=== PATIENT | female | born 1990 | race Caucasian/White ===

== ENCOUNTER 2018-03-20 15:28 | Inpatient (IN) | payer MEDICAID, OTHER, SELFPAY ==
[2018-03-20] MEDS ORDERED: METHYLERGONOVINE 0.2MG/ML AMP IM PRN (15:54)
[2018-03-20] MEDS ORDERED: CARBOPROST TROME 250 MCG/ML IM PRN (15:54)
[2018-03-20] MEDS ORDERED: Ringers Lactate 1,000 ML IV PRN (15:54)
[2018-03-20] MEDS ORDERED: Ringers Lactate 1,000 ML IV SCH (16:00)
[2018-03-20] MEDS ORDERED: PENICILLIN 5 MU in NA CHLORIDE 0.9% 100 ML IV ONE (16:02)
[2018-03-20] MEDS ORDERED: NA CIT/CITRIC AC 30 ML ORAL UDC PO ONE (16:05)
[2018-03-20] MEDS ORDERED: MORPHINE SULFATE/PF 1 MG/ML (10 ML AMP) ONE (16:19)
[2018-03-20] MEDS ORDERED: NS 0.9% VIAL 20 ML ONE (16:20)
[2018-03-20] MEDS ORDERED: Phenylephrine HCl 10 MG/ML 1 ML VIAL ONE (16:20)
[2018-03-20] MEDS ORDERED: FENTANYL CITR 250 MCG/5 ML ONE (16:20)
[2018-03-20] MEDS ORDERED: OXYTOCIN 10 UNIT/ML ML IV ONE ×2 (16:20→22:04)
[2018-03-20] MEDS ORDERED: EPHEDRINE SULF 50 MG/ML SYR ONE (16:20)
[2018-03-20 16:31] LABS: RPR Titer ND
[2018-03-20 16:38] LABS: Absolute Lymphocytes (CBC) 1.2 K/uL (0.7-4.9); Absolute Monocytes 1.1 K/uL (0.1-1.3); Absolute Neutrophil 9.9 K/uL (1.8-8.0); Basophils % 0.1 % (0-1.3); Eosinophils % 0.6 % (0-4.4); Hematocrit 33.2 % (36.0-45.0); Lymphocytes % 9.5 % (15.3-44.8); MCH 32.5 pg (27.0-35.0); MPV 8.8 fL (7.6-11.3); Monocytes % 8.7 % (3.3-12.3); RBC Red Blood Cell Count 3.57 M/uL (3.86-4.86)
[2018-03-20 16:41] LABS: Protime INR 0.97
[2018-03-20] MEDS ORDERED: PENICILLIN G POT 5 MU/100 ML IVPB IV ONE (17:00)
[2018-03-20] MEDS ORDERED: METOCLOPRAMIDE 10 MG/2mL INJ IV SCH (17:00)
--- NOTE | 2018-03-20 17:12 | RAD REPORT ---
EXAM DESCRIPTION: US - OB Limited - 03/20/2018 5:01 pm CLINICAL HISTORY: ^R/O Placenta Accreta COMPARISON: None. FINDINGS: Anterior placenta is grade 1. No abruption or marginal hematoma. No suspicion for accreta. IMPRESSION: No evidence of placenta accreta.
[2018-03-20] MEDS ORDERED: MIDAZOLAM HCL 2 MG/2 ML INJ ONE (17:15)
[2018-03-20] MEDS ORDERED: KETAMINE HCL 1,000 MG/10 ML VIAL ONE (17:15)
[2018-03-20] MEDS ORDERED: PROMETHAZINE 25 MG/ML VIAL ONE (19:22)
[2018-03-20] MEDS ORDERED: Oxycodone HCl/Acetaminophen 1 TAB TAB PO PRN (20:32)
[2018-03-20] MEDS ORDERED: DOCUSATE NA/SENNA CONC 1 TAB PO PRN (20:32)
[2018-03-20] MEDS ORDERED: ONDANSETRON 4 MG/2 ML VIAL IV PRN (20:32)
[2018-03-20] MEDS ORDERED: ACETAMINOPHEN 500 MG TAB PO PRN (20:32)
[2018-03-20] MEDS ORDERED: KETOROLAC 30 MG/ML INJ IV PRN (20:36)
[2018-03-20] MEDS ORDERED: PROMETHAZINE 25 MG/ML VIAL IV PRN (20:38)
[2018-03-20] MEDS ORDERED: D5LR 1,000 ML IV SCH (21:00)
[2018-03-20] MEDS ORDERED: OXYTOCIN/LR 20 UNIT/1,000 ML BAG IV SCH (21:00)
[2018-03-20 21:12] VITALS: BMI 34.4
[2018-03-20] MEDS: DIPHENHYDRAMINE 50 MG/ML VIAL IV PRN (22:10)
--- NOTE | 2018-03-20 22:25 | PREOPHP ---
Date of Admission: 03/20/2018 History Of Present Illness: A 28-year-old 5, para 2, AB 2, now with a third section . The patient is somewhere between 33 weeks and 6 days and 36 weeks. She has had progesterone durin g the . She has had betamethasone, experienced spontaneous rupture of membranes within the last 2 hours, is 2-3 cm, not in active labor at this point with definite rupture of membranes. Discu ssion with the patient and family about either transferring the patient to a high-risk center or deli vering here. She knows that the betamethasone does not guarantee that the baby's lungs will function adequately and the baby may have to be transferred after it is born. She says she does not want to transfer unless at all necessary. We will get a stat ultrasound to make sure she does not have place nta accreta and if she does not, we will proceed on with section. I have ordered 5 million units of penicillin as she was less than 37 weeks and we are instituting strep prophylaxis. Family History: Noncontributory. Social History: She has been on vitamins, does not smoke. Physical Examination: Vital Signs: All stable. HEENT: Clear. Pupils equal, round, and reactive to light and accommodation. Conjunctivae well perf used. No oral, lingual, or buccal lesions. Chest and Lungs: Clear. Heart: Without murmurs, thrills, heaves, or rubs. Breasts: Without masses. Abdomen: At least 35 cm size. Extremities: Clear. Pelvic: As stated. We will proceed with repeat section if the ultrasound demonstrates no placental problems. LEWIS/MOHINDER Voice ID: [id number]
[2018-03-20 22:54] LABS: RPR (Rapid Plasma Reagin) NON-REACT (NON-REACT)
[2018-03-21] MEDS ORDERED: CEFAZOLIN/SWI 2gm 2 GM/20 ML SYR ONE (01:34)
[2018-03-21] MEDS: DIPHENHYDRAMINE 50 MG/ML VIAL IV PRN (02:00)
[2018-03-21] MEDS ORDERED: CEFAZOLIN 2 GM in NA CHLORIDE 0.9% 100 ML IVPB ONE (02:00)
--- NOTE | 2018-03-21 04:32 | OP ---
Surgeon: Bakari Thornton MD A 28-year-old 5, para 2, AB2, best estimates 33 weeks 6 days to 36 weeks, with history of pre mature labor, was given progesterone during her and received betamethasone. Experienced sp ontaneous rupture of membranes, prior to admission was noted to be 2.5 to 3 cm. Gross rupture of flu id. No signs of amnionitis. Best estimated baby weight 5 pounds or better. After discussion with p nima and family, it was decided proceed with section. Ultrasound was done to make sure th ere was no problem with the placenta such as accreta, none was seen. The patient was taken to [facility]. After spinal block anesthesia had been performed, time-out was then performed. The patient been given 5 million units of penicillin as she was less than 37 weeks with ruptured membranes. A Pfannen stiel incision was created. The incision was carried to the fascia. The fascia was incised and inci yaakov carried transversely bilaterally. Anterior fascial plane was developed with both blunt and tasha p dissection. The underlying rectus muscle was easily and peritoneal defect was seen and e ntered. A low transverse uterine incision was created after the bladder flap was developed and pushe d away. A 5 pounds 5 ounces male infant was delivered without difficulties. Apgars [address] Regina helton in pediatric attendance. Cord blood specimen was obtained. The placenta was removed manually . Uterus cleared of clot and blood. Cervical os was dilated. Uterus was closed with a running-lock ed stitch of 1 chromic followed by 2 inminn-nb-neipf stitches in the right angle for complete hemosta sis. Estimated blood loss 850 cc. Gutters were cleared of clot and blood. Uterus was replaced in t he peritoneal cavity. Re-inspection of suture line showed no further bleeding. The fascia was close d with 1 Vicryl running from either angle to the midline. Subcutaneous tissue was closed with 2-0 pl ain. Absorbable luis placed and then metal luis. The patient tolerated all procedures well an d was transferred back to her room in good condition. Final Diagnoses: Intrauterine gestation, best estimates 35 weeks, repeat section, ruptured membranes, history of betamethasone administration, and penicillin prophylaxis. LEWIS/MOHINDER Voice ID: [id number] Report ID: [id number]
[2018-03-21] MEDS: Oxycodone HCl/Acetaminophen 1 TAB TAB PO PRN ×2 (07:55→13:52)
[2018-03-21] MEDS ORDERED: FAMOTIDINE 20 MG/2 ML VIAL IV SCH (09:00)
[2018-03-21 12:37] VITALS: BP 140/70; TEMP 98.3
[2018-03-21] MEDS ORDERED: IBUPROFEN 400 MG TAB PO SCH (16:00)
--- NOTE | 2018-03-22 06:07 | DS ---
Date of Discharge: 03/21/2018 A 28-year-old 5, para 2, previous , previous premature delivery, who has been given betamethasone during the and progesterone injections. Estimated 35 weeks gestation when sh e ruptured membranes. Had repeat section delivery of 5 pounds 5 ounce male , Apgars 8 and 9. Spinal block anesthesia. 850 cc blood loss. Penicillin given for prophylaxis as she was le ss than 37 weeks. Postoperatively afebrile, ambulating and voiding. Lochia is normal. Will discontinue her IV and Fol ey. She wants to go home later this afternoon. I see no problem with that doing exceptionally well. Final Diagnoses: Intrauterine gestation, 35 weeks. Premature rupture of membranes. Repeat section. Penicillin for prophylaxis. Dismissed. LEWIS/MOHINDER Voice ID: [id number] Report ID: [id number]
[2018-03-23 12:35] LABS: HBsAG Nonreactive (Nonreactive)
== END 2018-03-21 15:00 | disposition home or self-care (01) | DRG 765 ==
LOC: 2ND-WC 15:28
PROVIDERS: ADMIT Specialist; ATTEND Specialist
PROC: 10D00Z1 Extraction of Products of Conception, Low, Open Approach (ICD-10-PCS; principal; 2018-03-20 17:00)
DX: O34.211 Maternal care for low transverse scar from previous cesarean delivery (principal); O60.14X0 Preterm labor third trimester with preterm delivery third trimester, not applicable or unspecified; O42.013 Preterm premature rupture of membranes, onset of labor within 24 hours of rupture, third trimester; Z3A.35 35 weeks gestation of pregnancy; Z37.0 Single live birth
CPT/HCPCS: 36415; 76815; 85014; 85025; 85610; 85730; 86592; 86850; 86900; 86901; 87340; 88305; 88307; J0690; J2250; J2370; J2405; J2550; J2590; J2765; J3490

== ENCOUNTER 2021-05-15 17:48 | Emergency (ER) | payer BC, OTHER ==
--- OUTSIDE RECORDS SUMMARY | 2021-05-15 17:50 | XMS REPORT | Continuity of Care Document ---
:1990 Author Organization [facility] t Address [address] [place] [address] Care Team Providers Name Role Phone Dmitri SMITH, Josh Attending Clinician Corina Trujillo MD Attending Clinician Doctor Unassigned, Name Attending Clinician Unavailable Problems This patient has no known problems. Allergies, Adverse Reactions, Alerts This patient has no known allergies or adverse reactions. Medications This patient has no known medications. Procedures This patient has no known procedures. Encounters Start End Encounter Admission Attending Care Care Encounter Source Date/Time Date/Time Type Type Clinicians Facility Department ID 2021-04-20 2021-04-20 [facility] 1.2.840.114 [id number] 00:00:00 00:00:00 [facility] [id number] [facility] 4.2.7.2.686 Professio [phone] nal [facility] Office Building One 2021-04-16 2021-04-16 Refill [facility] 1.2.840.114 [id number] 00:00:00 00:00:00 [facility] [id number] [facility] [id number] Professio [phone] nal 044 Office Building One 2021-03-19 2021-03-19 [facility] 1.2.840.114 [id number] 00:00:00 00:00:00 [facility] [id number] [facility] [id number] Professio [phone] [place] [address] Office [address] One 2021-03-11 2021-03-11 Telemedici [facility] 1.2.840.114 [id number] 07:16:32 07:31:32 ne Visit [facility] [id number] [facility] [id number] Professio [phone] [place] [address] [address] One 2021-03-08 2021-03-08 Refill [facility] 1.2.840.114 [id number] 00:00:00 00:00:00 [facility] [id number] [facility] [id number] Professio [phone] [place] [address] Office [address] One 2021-02-12 2021-02-12 Refill [facility] 1.2.840.114 [id number] 00:00:00 00:00:00 [facility] [id number] [facility] [id number] Professio [phone] [place] [address] Office [address] One 2021-01-25 2021-01-25 Refill [facility] 1.2.840.114 [id number] 00:00:00 00:00:00 [facility] [id number] [facility] [place] 4.2.7.2.686 Professio [phone] [place] [address] Office [facility] One 2021-01-10 2021-01-10 Refill [facility] 1.2.840.114 [id number] 00:00:00 00:00:00 [facility] [id number] [facility] 4.2.7.2.686 Professio [phone] [place] [address] Office [address] One 2020-12-13 2020-12-13 Refill [facility] 1.2.840.114 [id number] 00:00:00 00:00:00 [facility] [id number] [facility] 4.2.7.2.686 Professio [phone] [place] [address] Office [address] One 2020-12-12 2020-12-12 [facility] 1.2.840.114 [id number] 00:00:00 00:00:00 [facility] 350.1.13.10 [facility] [place] 4.2.7.2.686 Professio [phone] [place] [address] Office [address] One 2020-12-11 2020-12-11 [facility] 1.2.840.114 [id number] 00:00:00 00:00:00 [facility] 350.1.13.10 [facility] 4.2.7.2.686 Professio [phone] [place] [address] Office [address] One 2020-11-13 2020-11-13 [facility] 1.2.840.114 [id number] 00:00:00 00:00:00 [facility] 350.1.13.10 [facility] 4.2.7.2.686 Professio [phone] [place] [address] Office [address] One 2020-11-09 2020-11-09 [facility] 1.2.840.114 [id number] 00:00:00 00:00:00 [facility] 350.1.13.10 [facility] 4.2.7.2.686 Professio [phone] [place] [address] Office [address] One 2020-10-19 2020-10-19 [facility] 1.2.840.114 [id number] 00:00:00 00:00:00 [facility] 350.1.13.10 [facility] 4.2.7.2.686 Professio [phone] [place] [address] [address] One 2020-10-15 2020-10-15 [facility] 1.2.840.114 [id number] 00:00:00 00:00:00 [facility] 350.1.13.10 [facility] 4.2.7.2.686 Professio [phone] [place] [address] Office [address] One 2020-09-11 2020-09-11 [facility] 1.2.840.114 [id number] 00:00:00 00:00:00 [facility] 350.1.13.10 [facility] 4.2.7.2.686 Professio [phone] [place] [address] Office [address] One 2020-09-03 2020-09-03 [facility]ici [facility] 1.2.840.114 [id number] 07:41:13 07:56:13 ne Visit [facility] 350.1.13.10 [facility] 4.2.7.2.686 Professio [phone] [place] [address] Office [address] One 2020-08-26 2020-08-26 [facility] 1.2.840.114 [id number] 00:00:00 00:00:00 [facility] 350.1.13.10 [facility] [place] 4.2.7.2.686 Professio [phone] [address] 2020-08-18 2020-08-18 [facility] 1.2.840.114 [id number] 00:00:00 00:00:00 [facility] 350.1.13.10 [facility] [place] 4.2.7.2.686 Professio [phone] [address] 2020-08-13 2020-08-13 Refill [facility] 1.2.840.114 [id number] 00:00:00 00:00:00 [facility] 350.1.13.10 [facility] 4.2.7.2.686 Professio [phone] [place] [address] [address] One 2020-07-17 2020-07-17 Refill [facility] 1.2.840.114 [id number] 00:00:00 00:00:00 [facility] 350.1.13.10 [facility] 4.2.7.2.686 Professio [phone] [place] [address] [address] One 2020-07-15 2020-07-15 Refill [facility] 1.2.840.114 [id number] 00:00:00 00:00:00 [facility] 350.1.13.10 [facility] 4.2.7.2.686 Professio [phone] [place] [address] [address] One 2020-07-13 2020-07-13 [facility].840.114 [id number] 00:00:00 00:00:00 [facility] 350.1.13.10 [facility] [place] 4.2.7.2.686 Professio [phone] [address] 2020-06-18 2020-06-18 [facility] 1.2.840.114 [id number] 00:00:00 00:00:00 [facility] 350.1.13.10 [facility] [place] 4.2.7.2.686 Professio [phone] [address] 2020-05-13 2020-05-13 [facility] 1.2.840.114 [id number] 00:00:00 00:00:00 [facility] 350.1.13.10 [facility] [place] 4.2.7.2.686 Professio [phone] [address] 2020-04-07 2020-04-07 [facility] 1.2.840.114 [id number] 00:00:00 00:00:00 [facility] 350.1.13.10 [facility] 4.2.7.2.686 Professio [phone] [address] 2020-03-27 2020-03-27 [facility] 1.2.840.114 [id number] 00:00:00 00:00:00 [facility] 350.1.13.10 [facility] [place] 4.2.7.2.686 Professio [phone] [address] 2020-03-02 2020-03-02 Telemedici [facility] 1.2.840.114 [id number] 07:53:18 08:13:18 ne Visit [facility] 350.1.13.10 [facility] [place] 4.2.7.2.686 Professio [phone] [address] 2020-02-27 2020-02-27 Telephone [facility] 1.2.840.114 [id number] 00:00:00 00:00:00 [facility] 350.1.13.10 [facility] 4.2.7.2.686 Professio [phone] nal [facility] Office Building One 2020-02-26 2020-02-26 [facility] 1.2.840.114 [id number] 00:00:00 00:00:00 Secure Msg [facility] 350.1.13.10 [facility] 4.2.7.2.686 Professio [phone] [place] [address] [address] One 2020-02-26 2020-02-26 [facility] 1.2.840.114 [id number] 00:00:00 00:00:00 [facility] 350.1.13.10 [facility] 4.2.7.2.686 Professio [phone] [place] [address] [address] One 2020-02-23 2020-02-[facility] 1.2.840.114 [id number] 00:00:00 00:00:00 [facility] 350.1.13.10 [facility] 4.2.7.2.686 Professio [phone] [place] [address] [address] One 2020-02-23 2020-02-23 [facility] 1.2.840.114 [id number] 00:00:00 00:00:00 [facility] 350.1.13.10 [facility] 4.2.7.2.686 Professio [phone] [place] [address] [address] One 2020-02-05 2020-02-05 [facility] 1.2.840.114 [id number] 00:00:00 00:00:00 [facility] 350.1.13.10 [facility] 4.2.7.2.686 Professio [phone] [place] [address] [address] One 2020-01-19 2020-01-19 [facility] 1.2.840.114 [id number] 11:51:27 12:06:27 Care [facility] 350.1.13.10 Surgical 4.2.7.2.686 Specialti [phone] [address] 2020-01-19 2020-01-19 Orders Doctor BILLY 1.2.840.114 [id number] 00:00:00 00:00:00 Only Unassigned, JAMAAL 350.1.13.10 [facility] 4.2.7.2.686 [phone] 009 2020-01-17 2020-01-17 [facility] 1.2.840.114 [id number] 00:00:00 00:00:00 [facility] 350.1.13.10 [facility] 4.2.7.2.686 Professio [phone] [place] [address] [address] One 2020-01-03 2020-01-03 [facility] 1.2.840.114 [id number] 00:00:00 00:00:00 [facility] 350.1.13.10 [facility] 4.2.7.2.686 Professio [phone] [place] [address] [address] One 2019-07-23 2019-07-23 [facility] 1.2.840.114 [id number] 00:00:00 00:00:00 [facility] 350.1.13.10 [facility] 4.2.7.2.686 Professio [phone] [place] [address] [address] One 2019-06-17 2019-06-17 [facility] 1.2.840.114 [id number] 00:00:00 00:00:00 [facility] 350.1.13.10 [facility] 4.2.7.2.686 Professio [phone] [place] [address] [address] One Results This patient has no known results.
[2021-05-15 18:47] LABS: Absolute Lymphocytes (CBC) 1.9 K/uL (0.7-4.9); Basophils % 0.8 % (0-1.3); Hematocrit 40.8 % (36.0-45.0); Lymphocytes % 22.5 % (15.3-44.8); MPV 9.4 fL (7.6-11.3); RBC Red Blood Cell Count 4.59 M/uL (3.86-4.86)
[2021-05-15] MEDS ORDERED: NA CHLORIDE 0.9% 1,000 ML ONE (19:06)
--- NOTE | 2021-05-15 19:06 | RAD REPORT ---
EXAM DESCRIPTION: CT - Soft Tissue Neck W/Contr - 05/15/2021 6:42 pm CLINICAL HISTORY: dysphagia COMPARISON: No comparisons TECHNIQUE: During dynamic enhancement using 100 milliliters nonionic IV contrast, axial 5 millimeter thick images of the neck were obtained. All CT scans are performed using dose optimization technique as appropriate and may include automated exposure control or mA/KV adjustment according to patient size. FINDINGS: Intracranial portion the exam is unremarkable. No globe or orbital content abnormality see n. Mastoid air cells and paranasal sinuses are clear. No pharyngeal mucosal mass or asymmetry identifiable. Tonsils are normal size. Parapharyngeal fat is normal in appearance. No soft palate, tongue base or epiglottis abnormality. No vocal cord asymmetry. Rare sub centimeter cervical lymph nodes are present. No bulky lymphadenopathy. Parotid, submandibular and thyroid gland tissue show no suspicious findings. IMPRESSION: CT soft tissue neck examination shows no significant or suspicious finding.
[2021-05-15 19:09] LABS: Potassium 3.4 mmol/L (3.5-5.1); T3 Free 2.97 pg/mL (2.18-3.98); Thyroid Stimulating Hormone 1.11 uIU/mL (0.360-3.740)
--- NOTE | 2021-05-15 19:27 | ER ---
Nurse's Notes [facility] Name: Isha Sage Age: 31 yrs Sex: Female : 1990 Arrival Date: 05/15/2021 Time: 17:50 Bed 25 Private MD: Diagnosis: Dysphagia, unspecified Presentation: 05/15 17:55 Chief complaint: Patient states: Feels a lump in her throat for a couple days. Feels ll1 like she is having difficulty swallowing today. No fever or cough. Coronavirus screen: Client denies travel out of the [place] in the last 14 days. At this time, the client does not indicate any symptoms associated with coronavirus-19. Ebola Screen: Patient denies travel to an Ebola-affected area in the 21 days before illness onset. Initial Sepsis Screen: Does the patient meet any 2 criteria? HR > 90 bpm. No. Patient's initial sepsis screen is negative. Does the patient have a suspected source of infection? Yes: Other: sore throat. Risk Assessment: Do you want to hurt yourself or someone else? Patient reports no desire to harm self or others. Onset of symptoms was May 11, 2021. 17:55 Method Of Arrival: Ambulatory ll1 17:55 Acuity: NORA 4 ll1 18:22 Acuity: NORA 3 iw Historical: - Allergies: 17:58 No Known Allergies; ll1 - PMHx: 17:58 None; ll1 - PSHx: 17:58 ; ll1 - Immunization history:: Flu vaccine is up to date. - Social history:: Smoking status: Patient reports the use of cigarette tobacco products, denies chronic smoking, but will smoke occasionally. Screenin:39 Abuse screen: Denies threats or abuse. Denies injuries from another. Nutritional zb screening: No deficits noted. Tuberculosis screening: No symptoms or risk factors identified. Fall Risk None identified. Assessment: 18:20 Reassessment: ECP at bedside discussing care with patient. zb 19:36 Reassessment: d/c pending completion of IV fluids per ECP . General: Appears zb comfortable, Behavior is calm, cooperative. Pain: Denies pain. Neuro: Level of Consciousness is awake, alert, obeys commands. Cardiovascular: Heart tones S1 S2 present Capillary refill < 3 seconds Patient's skin is warm and dry. Respiratory: Airway is patent Respiratory effort is even, unlabored, Respiratory pattern is regular, symmetrical, Breath sounds are clear bilaterally. GI: No deficits noted. : No deficits noted. EENT: Throat is clear is pink Reports difficulty swallowing. Derm: No deficits noted. Musculoskeletal: Range of motion: intact in all extremities. 20:06 Reassessment: Patient appears in no apparent distress at this time. Patient and/or zb family updated on plan of care and expected duration. Pain level reassessed. IV fluids 500ml left. patient stated she wanted to leave. IV removed. patient encourage to drink lots of water. PVU. Vital Signs: 17:55 BP 168 / 103; Pulse 108; Resp 16; Temp 99.0; Pulse Ox 99% ; Weight 73.03 kg; Height 5 ll1 ft. 4 in. (162.56 cm); Pain 6/10; 20:06 BP 142 / 90; Pulse 88; Resp 16; Pulse Ox 100% on R/A; zb 17:55 Body Mass Index 27.64 (73.03 kg, 162.56 cm) ll1 ED Course: 17:50 Patient arrived in ED. as 17:57 Triage completed. ll1 17:58 Arm band placed on Patient placed in an exam room, on a stretcher. ll1 18:03 Mt Ignacio PA is PHCP. cp 18:03 Mt Landon MD is Attending Physician. cp 18:16 Maggy Hussein, KEITH is Primary Nurse. zb 18:30 Inserted saline lock: 20 gauge in left wrist, using aseptic technique. Blood collected. zb 18:38 Patient has correct armband on for positive identification. Bed in low position. Call zb light in reach. Pulse ox on. NIBP on. Door closed. Noise minimized. Warm blanket given. 18:41 CT Soft Tissue Neck W/contr In Process Unspecified. EDMS 19:26 Sathish Carroll MD is Referral Physician. cp 20:07 No provider procedures requiring assistance completed. IV discontinued, intact, zb bleeding controlled, No redness/swelling at site. Pressure dressing applied. Administered Medications: 19:35 Drug: NS 0.9% 1000 ml Route: IV; Rate: 1 bolus; Site: left wrist; zb 20:03 Follow up: Response: No adverse reaction; IV Intake: 500ml zb 20:03 Follow up: Response: No adverse reaction; IV Status: Completed infusion; IV Intake: zb 500ml 19:35 Drug: Potassium Effervescent Tablet 50 mEq Route: PO; zb 20:03 Follow up: Response: No adverse reaction zb Intake: 20:03 IV: 500ml; Total: 500ml. zb Outcome: 19:26 Discharge ordered by MD. cp 20:07 Discharged to home ambulatory, with family. zb 20:07 Condition: stable 20:07 Discharge instructions given to patient, family, Instructed on discharge instructions, follow up and referral plans. Demonstrated understanding of instructions, follow-up care. 20:08 Patient left the ED. zb Signatures: Dispatcher [employer] EDArin Sofia Irene, RN RN Mt Hdz PA PA cp Lewis, Lynsay, RN RN ll1 Maggy Hussein RN RN zb Corrections: (The following items were deleted from the chart) 23:58 20:03 Response: No adverse reaction; IV Intake: 500ml zb zb 23:59 23:58 Response: No adverse reaction; IV Status: Completed infusion; IV Intake: 500ml zb zb
--- NOTE | 2021-05-15 19:27 | EDPHYS ---
Physician Documentation [facility] Name: Isha Sage Age: 31 yrs Sex: Female : 1990 Arrival Date: 05/15/2021 Time: 17:50 Bed 25 Private MD: ED Physician [facility] HPI: 05/15 18:20 This 31 yrs old Female presents to ER via Ambulatory with complaints of cp Difficulty Swallowing, Sore Throat. 18:20 The patient presents with dysphagia, of both solids and liquids, feels like "lump" in cp throat. 18:20 Onset: The symptoms/episode began/occurred several days ago. Severity of symptoms: in cp the emergency department the symptoms are unchanged. Associated signs and symptoms: Pertinent negatives cough, earache, fever, shortness of breath, sore throat, vomiting. Historical: - Allergies: 17:58 No Known Allergies; ll1 - PMHx: 17:58 None; ll1 - PSHx: 17:58 ; ll1 - Immunization history:: Flu vaccine is up to date. - Social history:: Smoking status: Patient reports the use of cigarette tobacco products, denies chronic smoking, but will smoke occasionally. ROS: 18:25 Constitutional: Negative for body aches, chills, fever, poor PO intake. cp 18:25 Eyes: Negative for injury, pain, redness, and discharge. cp 18:25 ENT: Positive for difficulty swallowing, Negative for drainage from ear(s), ear pain, sore throat, difficulty handling secretions. 18:25 Neck: Negative for pain with movement, pain at rest, stiffness, tenderness. 18:25 Cardiovascular: Negative for chest pain, palpitations. 18:25 Respiratory: Negative for cough, shortness of breath, wheezing. 18:25 Abdomen/GI: Negative for abdominal pain, nausea, vomiting, and diarrhea. 18:25 Neuro: Negative for headache. 18:25 All other systems are negative. Exam: 18:30 Constitutional: The patient appears in no acute distress, alert, awake, comfortable, cp non-diaphoretic, non-toxic, well developed, well nourished. 18:30 Head/Face: Normocephalic, atraumatic. cp 18:30 Eyes: Periorbital structures: appear normal, Conjunctiva: normal, no exudate, no injection, Sclera: no appreciated abnormality, Lids and lashes: appear normal, bilaterally. 18:30 ENT: External ear(s): are unremarkable, Ear canal(s): are normal, clear, TM's: bulging, is not appreciated, bilaterally, dullness, bilaterally, erythema, is not appreciated, bilaterally, Nose: is normal, Mouth: Lips: moist, Oral mucosa: pink and intact, moist, Posterior pharynx: Airway: no evidence of obstruction, patent, Tonsils: are normal in appearance, Uvula: midline, swelling, is not appreciated, erythema, is not appreciated, exudate, is not appreciated, Voice: is normal. 18:30 Neck: Thyroid: appears normal, no enlargement, ROM/movement: is normal, is supple, without pain, no range of motions limitations, Lymph nodes: no appreciated lymphadenopathy. 18:30 Chest/axilla: Inspection: normal, Palpation: is normal, no crepitus, no tenderness. 18:30 Cardiovascular: Rate: tachycardic, Rhythm: regular. 18:30 Respiratory: the patient does not display signs of respiratory distress, Respirations: normal, no use of accessory muscles, no retractions, labored breathing, is not present, Breath sounds: are clear throughout, no decreased breath sounds, no stridor, no wheezing. 18:30 Abdomen/GI: Exam negative for discomfort, distension, guarding, Inspection: abdomen appears normal. 18:30 Skin: no rash present. 18:30 Neuro: Orientation: to person, place \\T\\ time. Mentation: is normal, Motor: moves all fours, strength is normal. Vital Signs: 17:55 BP 168 / 103; Pulse 108; Resp 16; Temp 99.0; Pulse Ox 99% ; Weight 73.03 kg; Height 5 ll1 ft. 4 in. (162.56 cm); Pain 6/10; 20:06 BP 142 / 90; Pulse 88; Resp 16; Pulse Ox 100% on R/A; zb 17:55 Body Mass Index 27.64 (73.03 kg, 162.56 cm) ll1 MDM: 18:03 Patient medically screened. seymour 19:00 Differential diagnosis: patricia-canales virus, group A strep tonsillitis, peritonsillar cp abscess retropharyngeal abcess tonsillitis, uvulitis. 19:25 Data reviewed: vital signs, nurses notes, lab test result(s), radiologic studies, CT cp scan. 19:25 Counseling: I had a detailed discussion with the patient and/or guardian regarding: the cp historical points, exam findings, and any diagnostic results supporting the discharge/admit diagnosis, lab results, radiology results, the need for outpatient follow up, a green plumber, to return to the emergency department if symptoms worsen or persist or if there are any questions or concerns that arise at home. 05/15 18:14 Order name: [place] Screen Profile 05/15 18:14 Order name: Strep 05/15 18:14 Order name: BMP 05/15 18:14 Order name: CBC with Diff; Complete Time: 19:15 05/15 19:15 Interpretation: Normal except: MCV 89.0. 05/15 18:14 Order name: TSH 05/15 18:14 Order name: T3 Free 05/15 18:14 Order name: CT Soft Tissue Neck W/contr; Complete Time: 19:15 05/15 19:24 Interpretation: Report reviewed. 05/15 18:15 Order name: [place] Screen; Complete Time: 19:15 EDRI 05/15 19:25 Interpretation: Reviewed. 05/15 18:15 Order name: Group A Streptococcus Rapid Sc; Complete Time: 19:30 EDRI 05/15 18:15 Order name: Basic Metabolic Panel; Complete Time: 19:15 EDRI 05/15 19:15 Interpretation: Normal except: K 3.4; GFR 80. 05/15 18:15 Order name: Thyroid Stimulating Hormone; Complete Time: 19:15 EDRI 05/15 18:15 Order name: T3 Free; Complete Time: 19:15 EDMS 05/15 19:17 Order name: Throat Culture EDRI 05/15 18:14 Order name: IV; Complete Time: 18:38 cp Administered Medications: 19:35 Drug: NS 0.9% 1000 ml Route: IV; Rate: 1 bolus; Site: left wrist; zb 20:03 Follow up: Response: No adverse reaction; IV Intake: 500ml zb 20:03 Follow up: Response: No adverse reaction; IV Status: Completed infusion; IV Intake: zb 500ml 19:35 Drug: Potassium Effervescent Tablet 50 mEq Route: PO; zb 20:03 Follow up: Response: No adverse reaction zb Disposition: 05/15/21 19:26 Discharged to Home. Impression: Dysphagia, unspecified. - Condition is Stable. - Discharge Instructions: Dysphagia, Upper Endoscopy, Barium Swallow. - Medication Reconciliation Form, Thank You Letter, Antibiotic Education, Prescription Opioid Use form. - Follow up: Sathish Carroll MD; When: 2 - 3 days; Reason: Recheck today's complaints. - Problem is new. - Symptoms are unchanged. Signatures: Dispatcher [employer] EDMS [facility] MD MD cha Page, Corey, PA PA cp Lewis, Lynsay, RN RN ll1 Maggy Hussein RN RN zb Corrections: (The following items were deleted from the chart) 20:08 19:26 05/15/2021 19:26 Discharged to Home. Impression: Dysphagia, unspecified. zb Condition is Stable. Forms are Medication Reconciliation Form, Thank You Letter, Antibiotic Education, Prescription Opioid Use. Follow up: Sathish Carroll; When: 2 - 3 days; Reason: Recheck today's complaints. Problem is new. Symptoms are unchanged. cp
[2021-05-15] MEDS ORDERED: POTASSIUM 25 MEQ EFFERV TAB ONE (19:53)
[2021-05-15 20:12] VITALS: TEMP 99
[2021-05-15 20:13] VITALS: BP 142/90; O2SAT 100
== END 2021-05-15 20:08 | disposition home or self-care (01) ==
LOC: ER 17:48
DX: R13.10 Dysphagia, unspecified (principal); F17.210 Nicotine dependence, cigarettes, uncomplicated
CPT/HCPCS: 87070; 85025; 80048; 36415; 86308; 87081; 84443; 84481; 70491; Q9967; J7030; 99284

== ENCOUNTER 2021-11-15 07:31 | Day surgery (SDC) | payer BC ==
[2021-11-15] MEDS ORDERED: Ringers Lactate 1,000 ML IV ONE (07:51)
[2021-11-15] MEDS ORDERED: LIDOCAINE 1% W/EPI 1:100,000 10 ML VIAL ONE (07:55)
[2021-11-15 08:03] LABS: Specific Gravity 1.025 (1.005-1.030)
[2021-11-15] MEDS ORDERED: propofoL 200 MG/20 ML VIAL IV ONE ×2 (08:15→10:01)
[2021-11-15] MEDS ORDERED: MIDAZOLAM HCL 2 MG/2 ML INJ ONE ×2 (08:15→10:00)
[2021-11-15] MEDS ORDERED: FENTANYL CITR 100 MCG/2 ML ONE ×3 (08:15→12:41)
[2021-11-15] MEDS ORDERED: ROCURONIUM 50 MG/5 ML VIAL IV ONE ×2 (08:16→10:01)
[2021-11-15] MEDS ORDERED: LIDOCAINE 2% MPF 5 ML VIAL ONE ×2 (08:16→10:01)
[2021-11-15] MEDS ORDERED: GLYCOPYRROLATE 0.2 MG/ML SYR ONE ×3 (10:01→10:55)
[2021-11-15] MEDS ORDERED: NEOSTIGMINE 1 MG/ML -5 ML ONE ×3 (10:02→10:07)
[2021-11-15] MEDS ORDERED: CEFAZOLIN SODIUM 1 GM/VIAL ONE (10:38)
[2021-11-15] MEDS ORDERED: dexAMETHasone 10 MG/ML VIAL ONE (10:43)
[2021-11-15] MEDS ORDERED: ONDANSETRON 4 MG/2 ML VIAL ONE ×2 (11:03→12:21)
[2021-11-15] MEDS ORDERED: KETOROLAC 30 MG/ML INJ ONE (11:40)
[2021-11-15] MEDS ORDERED: Mastisol Adhesive Liq ONE (11:41)
[2021-11-15] MEDS: CODEINE 12mg/APAP 120mg PER 5 ML UCUP PO ONE (13:50)
[2021-11-15 14:16] VITALS: BP 116/64; TEMP 97.8; O2SAT 96
--- NOTE | 2021-11-16 22:04 | OP ---
Date of Procedure: 11/15/2021 Surgeon: MERCEDES YEBOAH Preoperative Diagnosis: Right cervical lymphadenopathy, chronic. Postoperative Diagnosis: Right cervical lymphadenopathy, chronic. Procedure: Excision of 4 lymph nodes, 2 lymph nodes were located in the superficial right upper neck level 1B, and 2 deep cervical lymph nodes were located in level 2 deep neck on the right side. Anesthesia: General endotracheal anesthesia was administered. I also infiltrated approximately 1% l idocaine with 1:100,000 epinephrine into the right neck incision site. Estimated Blood Loss: Scant, less than 2 mL. Specimens: At least 4 lymph nodes were taken from the right upper neck in levels 1B and level 2. Th romel lymph nodes were hand delivered by myself to the Pathology department and history was given so th at further evaluation could be performed. Findings: Two superficial lymph nodes were located in level 1B of the right neck with surrounding in flammation. Two deeper lymph nodes were located in level 2 of the right upper neck. Largest lymph n ode measured 2.2 cm. Complications: None. Disposition: Stable. The patient tolerated the procedure well. Indication For Procedure: Patient is a pleasant 31-year-old female, who was seen initially for multi ple lymph nodes located in bilateral neck, axilla and supraclavicular areas. Patient also complained of night sweats and throat pain, as well as, deep breast pain. She had had multiple CT scans done a nd the lymph nodes size had not changed appreciably despite being given amoxicillin and doxycycline. She has also had multiple lab tests done to detect any infectious cause of the lymphadenitis, but wi th exception of elevated sed rate over 100, her other studies had come back normal. These are the in dications to bring the patient to proceed for the above-mentioned procedure. She understood. All qu estions were answered. Risks versus benefits and complications were explained in detail, and a conse nt form was signed which was placed in the chart. Description Of Procedure: Patient was transferred from the preoperative holding area to the operativ e suite by Department of Anesthesia, placed on the operating table supine, sedated and intubated in n ormal fashion. I infiltrated approximately 10 mL of 1% lidocaine with 1:100,000 epinephrine into the right upper neck incision site, and the patient was sterilely prepped and draped. An incision was made in a horizontal neck crease through the skin down to the area of the platysma wi th a #15 blade scalpel. I then switched to monopolar electrocautery on the twentieth setting and dis sected to the subplatysmal area utilizing the monopolar electrocautery. Once I was able to detect th e inferior edge of the submandibular gland, I then elevated fascial tissue above the submandibular gl and entering into the level 1B neck space. Several lymph nodes were located in this area. One measu ring at least 2 cm in diameter and these 2 lymph nodes were removed with curved iris scissors and nee dlepoint electrocautery. Next, I dissected deeper into level 2 of the neck and I found 2 lymph nodes located in the deep cervical neck and these were excised with curved iris scissors, and needlepoint electrocautery. One lymph node appeared to be attached to glandular tissue which may be the tail of the parotid gland, although I find it that it is fairly low for the parotid tail to be located, thoug h we went ahead and excised this along with the lymph node and all specimens were placed into a speci men cup and labeled accordingly. Patient had minimal bleeding. I did place Avitene over an area nex t to the external jugular vein, which had very slight oozing and hemostasis was achieved. I then per formed a Valsalva, which did not elicit any oozing of blood. I then irrigated lightly with saline ir rigation and with suction Bovie. I then reapproximated the subdermal subcutaneous tissue with 4-0 Vi cryl in a simple interrupted fashion followed by subcuticular closure with 4-0 Monocryl. Steri-Strip s and a dressing were placed and she tolerated the procedure well. She will be discharged home on topical and oral antibiotics as well as analgesic medication, and will follow up i n 1 week or sooner if needed. GIRISH/MOHINDER Voice ID: [id number] Report ID: [id number]
== END 2021-11-15 14:14 | disposition home or self-care (01) ==
LOC: OR 07:31
PROVIDERS: ATTEND Otolaryngology Facial Plastic Surgery
PROC: 07T10ZZ Resection of Right Neck Lymphatic, Open Approach (ICD-10-PCS; 2021-11-15)
PROC: 07T10ZZ Resection of Right Neck Lymphatic, Open Approach (ICD-10-PCS; principal; 2021-11-15 08:30)
DX: R59.0 Localized enlarged lymph nodes (principal); Z20.822 Contact with and (suspected) exposure to COVID-19
CPT/HCPCS: 81025; 88305; 88333; J0690; J1100; J2250; J2405; J2704; J2710; J3010; J7120; U0003